=== PATIENT | female | born 1985 | race Caucasian/White ===

== ENCOUNTER 2017-10-25 07:58 | Emergency (ER) | payer OTHER, MEDICAID, SELFPAY ==
[2017-10-25 08:07] VITALS: BP 103/66; PULSE 68; RESP 15; TEMP 37; O2SAT 100; BMI 22.9
--- NOTE | 2017-10-25 08:22 | DI.US.S_ITS ---
PROCEDURE: US OB <= 14 WEEKS FETUS INDICATIONS: vaginal bleeding, pelvic pain, 11 weeks preg. hx ectopic TECHNIQUE: Real-time scanning was performed of the fetus and maternal pelvic organs, with image documentation. Endovaginal scanning was also performed to better visualize the fetus and maternal ovaries. COMPARISON: None. FINDINGS: Embryo: There is irregularly shaped gestational sac within the uterine fundus. A pole is present which measures 1.4 cm in length. There is no cardiac activity. Measurement variability in dating: +/- 4 weeks by LMP, +/- 7 days by mean sac diameter (use before 6 weeks gestation if crown-rump length not able to be measured), +/- 5 days by crown-rump length (up to 8 weeks 6 days gestation), +/- 7 days by crown-rump length (up to 13 weeks 6 days gestation). Maternal organs: Ovaries are not well-visualized. Limited images through the kidneys demonstrate no hydronephrosis. IMPRESSION: 1. Intrauterine demise. Dictated by: Cyndy Gilbert M.D. on 10/25/2017 at 9:26 Approved by: Cyndy Gilbert M.D. on 10/25/2017 at 9:27
--- NOTE | 2017-10-25 09:21 | ED.PREGNANCY ---
HPI - General Chief complaint: OB/Uterine Contractions Stated complaint: 11 wks -bleeding/cramping Time Seen by Provider: 10/25/17 08:10 Source: patient Mode of arrival: ambulatory Limitations: no limitations History of Present Illness HPI Narrative: This is a 32-year-old female who comes in with complaint of pelvic cramping that started yesterday and vaginal bleeding that started this morning. Patient states she noticed some blood when she wiped after urinating and some since then has started to have some clots in additional bleeding. Patient states that she is having some abdominal pain in the lower pelvic region. She felt little dizzy at 1 point but otherwise has not had any other symptoms. No fevers. She was nauseous a little bit yesterday. No vomiting. No chest pain or shortness of breath. No syncope. No GI or urinary symptoms. She did have ultrasound about 5 weeks, she has also had a history of ectopic which was treated with methotrexate and was not treated with surgical intervention. Patient has a metal bonder that she is following with. She denies any other medical issues. She is taking prenatals and no other medications. She denies any tobacco, alcohol or illicit. Patient : Yes Number of Weeks : 11 Related Data : 2 Para: 0 Total number of abortions (spontaneous and elective): 1 Previous Rx's Medication Instructions Recorded hydrocodone-acetaminophen [Dawson] 1 tab PO Q6H PRN #10 tab 10/25/17 ondansetron [Zofran ODT] 4 mg PO Q6-8H PRN #10 tab 10/25/17 Allergies Allergy/AdvReac Type Severity Reaction Status Date / Time Penicillins Allergy Verified 10/25/17 08:07 Review of Systems Review of Systems All systems reviewed & are unremarkable except as noted in HPI and below Constitutional Denies fever(s) Cardiovascular Denies chest pain, Denies syncope, Denies irregular heart rhythm, Denies lightheadedness, Denies palpitations, Denies dyspnea, Denies dyspnea on exertion and Denies orthopnea Respiratory Denies cough, Denies dyspnea, Denies dyspnea on exertion and Denies wheezing Gastrointestinal Gastrointestinal: Reports abdominal pain (Lower pelvic pain), Denies change in bowel habits, Denies diarrhea, Denies nausea and Denies vomiting Genitourinary Reports as per HPI, Reports abnormal vaginal bleeding, Denies urinary frequency, Reports pelvic pain, Denies flank pain and Denies vaginal discharge Neurologic Denies syncope Endocrine Denies palpitations Allergic/Immunologic Denies wheezing PMFSH - Past Medical History Prior ectopic treated with methotrexate Surgical history: Reports no surgical history 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 Patient : Yes Exam Initial Vital Signs Initial Vital Signs: Vital Signs Temperature 98.6 F 10/25/17 08:07 Pulse Rate 68 10/25/17 08:07 Respiratory Rate 15 10/25/17 08:07 Blood Pressure 103/66 10/25/17 08:07 Pulse Oximetry 100 10/25/17 08:07 Const General: cooperative, well developed, in distress and anxious Nutritional Appearance: well nourished Orientation: alert, awake, oriented x3 and not confused Resp Effort & Inspection: normal respiratory effort, able to speak in complete sentences, no respiratory distress and no use of accessory muscles Auscultation: clear to auscultation bilaterally, no rales, no rhonchi and no wheezes Cardio Rate: regular rate Rhythm: regular rhythm Heart Sounds: no click, no gallops, no murmurs and no rubs Pulses: normal peripheral pulses GI Inspection: non-distended Palpation: soft, no hepatosplenomegaly, No guarding, No pulsatile mass and No tender Auscultation: normal bowel sounds General: No CVA tenderness Procedures Number of Weeks : 11 Course Orders Ordered: Discontinued Medications Hydrocodone Bitart/Acetaminophen (Dawson 5/325) 1 tab PO NOW ONE Stop: 10/25/17 09:21 Last Admin: 10/25/17 09:26 Dose: 1 tab Ketorolac Tromethamine (Toradol) 60 mg IM NOW ONE Stop: 10/25/17 10:11 Last Admin: 10/25/17 10:19 Dose: 60 mg Reevaluation(s) Reevaluation #1: patient has been having some increasing pelvic cramping. She is not having a lot of vaginal bleeding at this time. She had Dawson but she may have thrown that up. Discussed and she is amenable to Toradol. We reviewed her ultrasound findings And that she did have demise. Her labs were not drawn after being ordered and so she just had her lab work drawn for Rh as well as CBC and HCG level. Time: 10:11 Consultations Consultation #1: Dr. Evans asks that patient call tomorrow to check in with the office. He does ask that the patient be NPO after midnight so if she does require D and C tomorrow that she will be ready. Rh status is pending. Time: 10:11 Vital Signs - 8 hr 10/25/17 11:23 Temperature 97.9 F Pulse Rate 65 Respiratory Rate 18 Blood Pressure 101/52 L Pulse Oximetry 99 MDM - OB/Uterine Contractions Lab Data Result diagrams: 10/25/17 10:00 10/25/17 10:00 Lab Results 10/25/17 10/25/17 10/25/17 Range/Units 10:00 10:00 10:00 WBC 13.3 H (4.5-11.0) X10^3/uL RBC 4.34 (4.0-5.2) X10^6/uL Hgb 12.9 (12.0-16.0) g/dL Hct 37.6 (36-46) % MCV 86.7 (80-100) fL MCH 29.8 (26-34) PG MCHC 34.4 (30-36) % RDW 13.4 (11.6-14.8) % Plt Count 293 (150-400) X10^3/uL Neut % (Auto) 79.9 H (50-75) % Lymph % (Auto) 14.1 L (25-40) % [place] % (Auto) 4.9 (3-14) % Eos % (Auto) 0.8 L (2-4) % Baso % (Auto) 0.3 (0-2) % Neut # (Auto) 36620 H (7406-4710) /uL Sodium 142 (137-145) mmol/L Potassium 4.2 (3.4-5.1) mmol/L Chloride 108 H (98-107) mmol/L Carbon Dioxide 25 (22-32) mmol/L BUN 7 (7-17) mg/dL Creatinine 0.50 L (0.52-1.04) mg/dL Estimated GFR > 60.0 (>60) mL/min BUN/Creatinine Ratio 14.0 (6-22) Glucose 106 H (70-100) mg/dL Calcium 9.2 (8.4-10.2) mg/dL Total Bilirubin 0.5 (0.2-1.3) mg/dL AST 23 (14-36) IU/L ALT 31 (9-52) IU/L Alkaline Phosphatase 51 (38-126) U/L Total Protein 6.7 (6.3-8.2) g/dL Albumin 4.3 (3.5-5.0) g/dL Globulin 2.4 (1.7-4.1) g/dL Albumin/Globulin Ratio 1.8 (1.0-2.8) HCG, Quant 4163.8 mIU/mL Blood Type O Positive Urine Dip Bedside Urine Glucose Negative Bedside Urine Bilirubin - Negative Bedside Urine Ketone - Negative Urine Specific [place] 1.010 Bedside Urine Occult Blood ++ Bedside Urine pH 6.0 Bedside Urine Protein - Negative Bedside Urine Urobilinogen - Negative Bedside Urine Nitrite - Negative Bedside Urine Leukocytes - Negative Esterase Imaging Data ob US: Radiologist's impression: [address] [address] Ultrasound Report Signed Patient: Karrie Arrieta MR#: [id number] : 1985 Acct:[id number] Age/Sex: 32 / F Date of Service: 10/25/17 Loc: ED Accession Number: [id number] Procedure: US OB <= 14 weeks fetus Ordering Provider: Lona Muniz D.O. PROCEDURE: US OB <= 14 WEEKS FETUS INDICATIONS: vaginal bleeding, pelvic pain, 11 weeks preg. hx ectopic TECHNIQUE: Real-time scanning was performed of the fetus and maternal pelvic organs, with image documentation. Endovaginal scanning was also performed to better visualize the fetus and maternal ovaries. COMPARISON: None. FINDINGS: Embryo: There is irregularly shaped gestational sac within the uterine fundus. A pole is present which measures 1.4 cm in length. There is no cardiac activity. Measurement variability in dating: +/- 4 weeks by LMP, +/- 7 days by mean sac diameter (use before 6 weeks gestation if crown-rump length not able to be measured), +/- 5 days by crown-rump length (up to 8 weeks 6 days gestation), +/- 7 days by crown-rump length (up to 13 weeks 6 days gestation). Maternal organs: Ovaries are not well-visualized. Limited images through the kidneys demonstrate no hydronephrosis. IMPRESSION: 1. Intrauterine demise. Dictated by: Cyndy Gilbert M.D. on 10/25/2017 at 9:26 Approved by: Cyndy Gilbert M.D. on 10/25/2017 at 9:27 [facility] Narrative Medical decision making narrative: CBC, hCG an Rh status were obtained. Patient is Rh positive so no RhoGAM was given. Ultrasound shows intrauterine demise. Patient is having a lot pelvic cramping head will likely have increased bleeding over night. Symptoms were improved somewhat with Toradol. She was given a prescription for pain medication. Spoke with Dr. Evans who is professional programmer analyst for OBGYN to set up follow-up as patient only has a metal bonder currently. Plan is for patient to call tomorrow unless she is having worsening symptoms overnight and then she is to return to the ED. Otherwise she can follow up with OB tomorrow. Discharge Plan Departure Patient Disposition: Home Clinical Impression: Incomplete miscarriage Discharge Date/Time: 10/25/17 11:23 Interventions: ED Discharge Assessment Last Done: 10/25/17 11:23 Instructions: Dealing With Miscarriage, DI for Miscarriage Activity Restrictions/Additional Instructions: Call Dr. Evans is office tomorrow to check in. If needed they will see you tomorrow for follow-up. Call the number in your discharge instructions. Let them know that you were seen in the emergency department. Dr. Evans does ask that you stay NPO or no food/drink after midnight in case you require evaluation and D&C tomorrow. If you are having bleeding greater than 1 pad per hour, lightheadedness, dizziness, shortness of breath or rapidly increasing pain I return to the emergency department for re-evaluation. Take pain medications as needed, you may take 1-2 tablets of Dawson every 4-6 hours as needed for pain. I would also recommend taking ibuprofen up to 800 mg every 8 hr. Prescriptions: New hydrocodone-acetaminophen [Dawson] 5-325 mg tablet 1 tab PO Q6H PRN (Reason: pain) Qty: 10 RF: 0 ondansetron [Zofran ODT] 4 mg tablet,disintegrating 4 mg PO Q6-8H PRN (Reason: nausea and vomiting) Qty: 10 RF: 0 Referrals: Chase Evans MD [Physician] - 10/26/17 12:00 am (Call tomorrow am for follow up.)
--- NOTE | 2017-10-25 09:24 | PC.NURSE ---
S/W pts . Explained follow up and pt will recieve pain meds and can eat.
--- NOTE | 2017-10-25 09:25 | ED_ITS ---
HPI - General Chief complaint: OB/Uterine Contractions Stated complaint: 11 wks -bleeding/cramping Time Seen by Provider: 10/25/17 08:10 Source: patient Mode of arrival: ambulatory Limitations: no limitations History of Present Illness HPI Narrative: This is a 32-year-old female who comes in with complaint of pelvic cramping that started yesterday and vaginal bleeding that started this morning. Patient states she noticed some blood when she wiped after urinating and some since then has started to have some clots in additional bleeding. Patient states that she is having some abdominal pain in the lower pelvic region. She felt little dizzy at 1 point but otherwise has not had any other symptoms. No fevers. She was nauseous a little bit yesterday. No vomiting. No chest pain or shortness of breath. No syncope. No GI or urinary symptoms. She did have ultrasound about 5 weeks, she has also had a history of ectopic which was treated with methotrexate and was not treated with surgical intervention. Patient has a associate director qa that she is following with. She denies any other medical issues. She is taking prenatals and no other medications. She denies any tobacco, alcohol or illicit. Patient : Yes Number of Weeks : 11 Related Data : 2 Para: 0 Total number of abortions (spontaneous and elective): 1 Previous Rx's Medication Instructions Recorded hydrocodone-acetaminophen [Alma] 1 tab PO Q6H PRN #10 tab 10/25/17 ondansetron [Zofran ODT] 4 mg PO Q6-8H PRN #10 tab 10/25/17 Allergies Allergy/AdvReac Type Severity Reaction Status Date / Time Penicillins Allergy Verified 10/25/17 08:07 Review of Systems Review of Systems All systems reviewed & are unremarkable except as noted in HPI and below Constitutional Denies fever(s) Cardiovascular Denies chest pain, Denies syncope, Denies irregular heart rhythm, Denies lightheadedness, Denies palpitations, Denies dyspnea, Denies dyspnea on exertion and Denies orthopnea Respiratory Denies cough, Denies dyspnea, Denies dyspnea on exertion and Denies wheezing Gastrointestinal Gastrointestinal: Reports abdominal pain (Lower pelvic pain), Denies change in bowel habits, Denies diarrhea, Denies nausea and Denies vomiting Genitourinary Reports as per HPI, Reports abnormal vaginal bleeding, Denies urinary frequency , Reports pelvic pain, Denies flank pain and Denies vaginal discharge Neurologic Denies syncope Endocrine Denies palpitations Allergic/Immunologic Denies wheezing PMFSH - Past Medical History Prior ectopic treated with methotrexate 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 Patient : Yes Exam Initial Vital Signs Initial Vital Signs: Vital Signs Temperature 98.6 F 10/25/17 08:07 Pulse Rate 68 10/25/17 08:07 Respiratory Rate 15 10/25/17 08:07 Blood Pressure 103/66 10/25/17 08:07 Pulse Oximetry 100 10/25/17 08:07 Const General: cooperative, well developed, in distress and anxious Nutritional Appearance: well nourished Orientation: alert, awake, oriented x3 and not confused Resp Effort & Inspection: normal respiratory effort, able to speak in complete sentences, no respiratory distress and no use of accessory muscles Auscultation: clear to auscultation bilaterally, no rales, no rhonchi and no wheezes Cardio Rate: regular rate Rhythm: regular rhythm Heart Sounds: no click, no gallops, no murmurs and no rubs Pulses: normal peripheral pulses GI Inspection: non-distended Palpation: soft, no hepatosplenomegaly, No guarding, No pulsatile mass and No tender Auscultation: normal bowel sounds General: No CVA tenderness Procedures Number of Weeks : 11 Course Orders Ordered: Discontinued Medications Hydrocodone Bitart/Acetaminophen (Alma 5/325) 1 tab PO NOW ONE Stop: 10/25/17 09:21 Last Admin: 10/25/17 09:26 Dose: 1 tab Ketorolac Tromethamine (Toradol) 60 mg IM NOW ONE Stop: 10/25/17 10:11 Last Admin: 10/25/17 10:19 Dose: 60 mg Reevaluation(s) Reevaluation #1: patient has been having some increasing pelvic cramping. She is not having a lot of vaginal bleeding at this time. She had Alma but she may have thrown that up. Discussed and she is amenable to Toradol. We reviewed her ultrasound findings And that she did have demise. Her labs were not drawn after being ordered and so she just had her lab work drawn for Rh as well as CBC and HCG level. Time: 10:11 Consultations Consultation #1: Dr. Evans asks that patient call tomorrow to check in with the office. He does ask that the patient be NPO after midnight so if she does require D and C tomorrow that she will be ready. Rh status is pending. Time: 10:11 Vital Signs - 8 hr 10/25/17 11:23 Temperature 97.9 F Pulse Rate 65 Respiratory Rate 18 Blood Pressure 101/52 L Pulse Oximetry 99 MDM - OB/Uterine Contractions Lab Data Result diagrams: 10/25/17 10:00 10/25/17 10:00 Lab Results 10/25/17 10/25/17 10/25/17 Range/Units 10:00 10:00 10:00 WBC 13.3 H (4.5-11.0) X10^3/uL RBC 4.34 (4.0-5.2) X10^6/uL Hgb 12.9 (12.0-16.0) g/dL Hct 37.6 (36-46) % MCV 86.7 (80-100) fL MCH 29.8 (26-34) PG MCHC 34.4 (30-36) % RDW 13.4 (11.6-14.8) % Plt Count 293 (150-400) X10^3/uL Neut % (Auto) 79.9 H (50-75) % Lymph % (Auto) 14.1 L (25-40) % [place] % (Auto) 4.9 (3-14) % Eos % (Auto) 0.8 L (2-4) % Baso % (Auto) 0.3 (0-2) % Neut # (Auto) 12307 H (3260-2441) /uL Sodium 142 (137-145) mmol/L Potassium 4.2 (3.4-5.1) mmol/L Chloride 108 H (98-107) mmol/L Carbon Dioxide 25 (22-32) mmol/L BUN 7 (7-17) mg/dL Creatinine 0.50 L (0.52-1.04) mg/dL Estimated GFR > 60.0 (>60) mL/min BUN/Creatinine Ratio 14.0 (6-22) Glucose 106 H (70-100) mg/dL Calcium 9.2 (8.4-10.2) mg/dL Total Bilirubin 0.5 (0.2-1.3) mg/dL AST 23 (14-36) IU/L ALT 31 (9-52) IU/L Alkaline Phosphatase 51 (38-126) U/L Total Protein 6.7 (6.3-8.2) g/dL Albumin 4.3 (3.5-5.0) g/dL Globulin 2.4 (1.7-4.1) g/dL Albumin/Globulin Ratio 1.8 (1.0-2.8) HCG, Quant 4163.8 mIU/mL Blood Type O Positive Urine Dip Bedside Urine Glucose Negative Bedside Urine Bilirubin - Negative Bedside Urine Ketone - Negative Urine Specific [place] 1.010 Bedside Urine Occult Blood ++ Bedside Urine pH 6.0 Bedside Urine Protein - Negative Bedside Urine Urobilinogen - Negative Bedside Urine Nitrite - Negative Bedside Urine Leukocytes - Negative Esterase Imaging Data ob US: Radiologist's impression: [address] [address] Ultrasound Report Signed Patient: Karrie Arrieta MR#: [id number] : 1985 Acct:[id number] Age/Sex: 32 / F Date of Service: 10/25/17 Loc: ED Accession Number: [id number] Procedure: US OB <= 14 weeks fetus Ordering Provider: Lona Muniz D.O. PROCEDURE: US OB <= 14 WEEKS FETUS INDICATIONS: vaginal bleeding, pelvic pain, 11 weeks preg. hx ectopic TECHNIQUE: Real-time scanning was performed of the fetus and maternal pelvic organs, with image documentation. Endovaginal scanning was also performed to better visualize the fetus and maternal ovaries. COMPARISON: None. FINDINGS: Embryo: There is irregularly shaped gestational sac within the uterine fundus. A pole is present which measures 1.4 cm in length. There is no cardiac activity. Measurement variability in dating: +/- 4 weeks by LMP, +/- 7 days by mean sac diameter (use before 6 weeks gestation if crown-rump length not able to be measured), +/ - 5 days by crown-rump length (up to 8 weeks 6 days gestation), +/- 7 days by crown-rump length (up to 13 weeks 6 days gestation). Maternal organs: Ovaries are not well-visualized. Limited images through the kidneys demonstrate no hydronephrosis. IMPRESSION: 1. Intrauterine demise. Dictated by: Cyndy Gilbert M.D. on 10/25/2017 at 9:26 Approved by: Cyndy Gilbert M.D. on 10/25/2017 at 9:27 [facility] Narrative Medical decision making narrative: CBC, hCG an Rh status were obtained. Patient is Rh positive so no RhoGAM was given. Ultrasound shows intrauterine demise. Patient is having a lot pelvic cramping head will likely have increased bleeding over night. Symptoms were improved somewhat with Toradol. She was given a prescription for pain medication. Spoke with Dr. Evans who is personal care worker for OBGYN to set up follow-up as patient only has a associate director qa currently. Plan is for patient to call tomorrow unless she is having worsening symptoms overnight and then she is to return to the ED. Otherwise she can follow up with OB tomorrow. Discharge Plan Departure Patient Disposition: Home Clinical Impression: Incomplete miscarriage Discharge Date/Time: 10/25/17 11:23 Interventions: ED Discharge Assessment Last Done: 10/25/17 11:23 Instructions: Dealing With Miscarriage, DI for Miscarriage Activity Restrictions/Additional Instructions: Call Dr. Evans is office tomorrow to check in. If needed they will see you tomorrow for follow-up. Call the number in your discharge instructions. Let them know that you were seen in the emergency department. Dr. Evans does ask that you stay NPO or no food/drink after midnight in case you require evaluation and D&C tomorrow. If you are having bleeding greater than 1 pad per hour, lightheadedness, dizziness, shortness of breath or rapidly increasing pain I return to the emergency department for re-evaluation. Take pain medications as needed, you may take 1-2 tablets of Alma every 4-6 hours as needed for pain. I would also recommend taking ibuprofen up to 800 mg every 8 hr. Prescriptions: New hydrocodone-acetaminophen [Alma] 5-325 mg tablet 1 tab PO Q6H PRN (Reason: pain) Qty: 10 RF: 0 ondansetron [Zofran ODT] 4 mg tablet,disintegrating 4 mg PO Q6-8H PRN (Reason: nausea and vomiting) Qty: 10 RF: 0 Referrals: Chase Evans MD [Physician] - 10/26/17 12:00 am (Call tomorrow am for follow up.)
[2017-10-25] MEDS: HYDROCODONE/ACET 5/325 TABLET 1 TAB PO (09:26)
[2017-10-25 10:11] LABS: Add Manual Diff / Slide Review NO; Basophils Percent Auto 0.3 % (0-2); Eosinophils Percent Auto 0.8 % (2-4); Hematocrit 37.6 % (36-46); Hemoglobin 12.9 g/dL (12.0-16.0); Lymphocytes Percent Auto 14.1 % (25-40); Mean Corpuscular HGB Conc 34.4 % (30-36); Mean Corpuscular Hemoglobin 29.8 PG (26-34); Mean Corpuscular Volume 86.7 fL (80-100); Monocytes Percent Auto 4.9 % (3-14); Neutrophils Absolute Auto 10600 /uL (3000-5900); Neutrophils Percent Auto 79.9 % (50-75); Platelet Count 293 X10^3/uL (150-400); Red Blood Cell Count 4.34 X10^6/uL (4.0-5.2); Red Cell Distribution Width 13.4 % (11.6-14.8); White Blood Cell Count 13.3 X10^3/uL (4.5-11.0)
[2017-10-25] MEDS: KETOROLAC 60 MG/2 ML VIAL IM (10:19)
[2017-10-25 10:22] LABS: Alanine Aminotransferase 31 IU/L (9-52); Albumin 4.3 g/dL (3.5-5.0); Albumin Globulin Ratio 1.8 (1.0-2.8); Alkaline Phosphatase 51 U/L (38-126); Aspartate Aminotransferase 23 IU/L (14-36); Bilirubin Total 0.5 mg/dL (0.2-1.3); Blood Urea Nitrogen 7 mg/dL (7-17); Calcium 9.2 mg/dL (8.4-10.2); Carbon Dioxide 25 mmol/L (22-32); Chloride 108 mmol/L (98-107); Estimated Glomerular Filt Rate > 60.0 mL/min (>60); Globulin 2.4 g/dL (1.7-4.1); Glucose 106 mg/dL (70-100); HEMOLYSIS < 15 (0-50); Potassium 4.2 mmol/L (3.4-5.1); Sodium 142 mmol/L (137-145); Total Protein 6.7 g/dL (6.3-8.2)
[2017-10-25 10:38] LABS: HCG Quantitative /Beta subunit 4163.8 mIU/mL
[2017-10-25 11:23] VITALS: BP 101/52; PULSE 65; RESP 18; TEMP 36.6; O2SAT 99
== END 2017-10-25 11:23 | disposition home or self-care (01) ==
PROVIDERS: Emergency Provider Emergency Medicine
DX: O03.4 Incomplete spontaneous abortion without complication (principal); Z3A.11 11 weeks gestation of pregnancy
CPT/HCPCS: 36415; 76801; 76817; 80053; 81003; 84702; 85025; 86900; 86901; 96372; 99282; 99284; J1885

== ENCOUNTER → 2018-09-08 15:14 | Outpatient (CLI) | payer OTHER, MEDICAID, SELFPAY ==
[2018-09-08 16:09] LABS: Add Manual Diff / Slide Review NO; Basophils Absolute Auto 0 /uL (0-100); Basophils Percent Auto 0.3 % (0-2); Eosinophils Absolute Auto 100 /uL (0-450); Eosinophils Percent Auto 1.3 % (2-4); Hematocrit 35.9 % (36-46); Hemoglobin 12.1 g/dL (12.0-16.0); Lymphocytes Absolute Auto 1800 /uL (1100-4500); Lymphocytes Percent Auto 16.7 % (25-40); Mean Corpuscular HGB Conc 33.7 % (30-36); Mean Corpuscular Volume 88.9 fL (80-100); Monocytes Absolute Auto 500 /uL (0-900); Monocytes Percent Auto 4.5 % (3-14); Neutrophils Absolute Auto 8200 /uL (1500-7000); Neutrophils Percent Auto 77.2 % (50-75); Platelet Count 265 X10^3/uL (150-400); Red Blood Cell Count 4.04 X10^6/uL (4.0-5.2); Red Cell Distribution Width 13.5 % (11.6-14.8); White Blood Cell Count 10.6 X10^3/uL (4.5-11.0)
[2018-09-08 16:15] LABS: Appearance Urine UA CLEAR; Bilirubin Urine UA NEGATIVE (NEGATIVE); Color Urine UA YELLOW; Glucose Urine UA NEGATIVE (Negative); Ketones Urine UA NEGATIVE (NEGATIVE); Leukocyte Esterase Urine UA NEGATIVE (NEGATIVE); Nitrite Urine UA NEGATIVE (Negative); Occult Blood Urine UA NEGATIVE (Negative); Protein Urine UA NEGATIVE (Negative); Specific Gravity Urine UA 1.025 (1.000-1.035); Urobilinogen Urine UA 0.2 E.U./dL (0.2); pH Urine UA 6.5 (4.5-8.0)
[2018-09-08 17:32] LABS: Hepatitis B Surface Antigen NEGATIVE s/c (NEGATIVE)
[2018-09-08 17:36] LABS: Specimen Label NATERA
[2018-09-08 17:38] LABS: HIV 1 & 2 Ab/Ag 4th Gen Combo NEGATIVE (NEGATIVE); Hep C Virus Ab w/Reflex Quant NEGATIVE s/c (NEGATIVE)
[2018-09-10 14:31] LABS: RPR Screen Nonreactive (Nonreactive)
== END ==
PROVIDERS: Visit Provider Specialist
DX: Z34.91 Encounter for supervision of normal pregnancy, unspecified, first trimester (principal); Z13.79 Encounter for other screening for genetic and chromosomal anomalies
CPT/HCPCS: 36415; 80055; 81003; 86787; 86803; 86850; 86900; 86901; 87086; 87389; 87491; 87591

== ENCOUNTER → 2018-09-08 17:28 | Outpatient (CLI) | payer OTHER, MEDICAID, SELFPAY ==
[2018-09-08 22:15] LABS: Urine N gonorrhoeae NOT DETECTED
[2018-09-08 22:25] LABS: Urine Chlamydia NOT DETECTED
== END ==
PROVIDERS: Visit Provider Specialist
DX: Z34.81 Encounter for supervision of other normal pregnancy, first trimester (principal); Z13.79 Encounter for other screening for genetic and chromosomal anomalies
CPT/HCPCS: 87491; 87591

== ENCOUNTER → 2018-11-10 09:52 | Outpatient (CLI) | payer OTHER, MEDICAID, SELFPAY ==
--- NOTE | 2018-11-10 09:53 | DI.US.S_ITS ---
PROCEDURE: US OB >= 14 WEEKS FETUS INDICATIONS: 20 WK ANATOMIC SURVEY OUTSIDE/PRIOR DATING DATA: Last menstrual period (LMP): 06/18/18. LMP-based estimated date of delivery (POOJA): 03/25/18. First dating scan (date and location): 11/10/18 Estimated date of delivery (POOJA) from first dating scan: 03/26/18. TECHNIQUE: Real-time scanning was performed of the fetus, with image documentation and biometric measurements. Endovaginal scanning: No COMPARISON: ultrasound 10/25/2017. FINDINGS: General: A single living intrauterine gestation is present. Presentation: Breech Placenta: Placental position is fundal, without previa. Amniotic fluid index: 19.7 cm, normal range is 5-24 cm. heart rate: 150 beats per minute. Irregular heart beats are noted. Maternal cervical canal: 4.4 cm long. Normal lower limit is 2.5 cm. biometrics: Biparietal diameter: 20 weeks 3 days Head circumference: 20 weeks 1 day Abdominal circumference: 20 weeks 1 day Femur length: 20 weeks 3 days Estimated gestational age from initial scan: 20 weeks 5 days Composite gestational age from present scan: 20 weeks 4 days Estimated weight and percentile: 375 g; 47 percentile Measurement variability for biometric dating: +/- 7 days from 14 weeks to 15 weeks 6 days gestation, +/- 10 days from 16 weeks to 21 weeks 6 days gestation, +/- 2 weeks from 22 weeks to 27 weeks 6 days gestation, +/- 3 weeks for 28 weeks gestation or later. weight reference: 4500 g or EFW >90/95% is considered macrosomia or large for gestational age. EFW <10% is small for gestational age. EFW 5% or less is considered intra-uterine growth restriction. Anatomic survey: Neuro: Ventricles are non-dilated at less than 10 mm. Cisterna magna is normal at 3-11 mm. Cerebellum is normal in size and morphology. Nuchal skin fold: Normal at less than 6 mm between 14-21 weeks gestational age. Face: Nose and lips, facial profile are normal. Spine: No evidence for spina bifida. Heart: 4-chambered heart is present, with normal ventricular outflow tracts. Diaphragm: Diaphragm is intact. Stomach: Left-sided stomach is present. Kidneys: No hydronephrosis. Normal is less than 5 mm in 2nd trimester, less than 7 mm in 3rd trimester. Cord: 3-vessel cord has orthotopic insertion. Bladder: Normal in size. Extremities: All 4 extremities identified. IMPRESSION: 1. Single living IUP with mean composite gestational age of 20 weeks 4 days corresponding to ultrasound POOJA of 03/26/18. 2. Normal placenta and amniotic fluid. 3. Irregular heart beats concerning for arrhythmia. Recommend short-term followup ultrasound. 4. Normal anatomic survey. Dictated by: Joel AVERY Interpreted: Graeme Fishre MD on 11/10/2018 at 12:56 Approved by: Graeme Fisher M.D. on 11/10/2018 at 13:39
== END ==
PROVIDERS: Visit Provider Specialist
DX: Z34.82 Encounter for supervision of other normal pregnancy, second trimester (principal); Z3A.20 20 weeks gestation of pregnancy
CPT/HCPCS: 76811

== ENCOUNTER → 2019-03-11 14:40 | Outpatient (CLI) | payer MEDICAID, OTHER, SELFPAY ==
--- NOTE | 2019-03-11 | DI.US.S_ITS ---
PROCEDURE: US OB BIOPHYSICAL PROFILE INDICATIONS: BPP AND SAVANA OUTSIDE/PRIOR DATING DATA: Last menstrual period (LMP): 06/18/18. LMP-based estimated date of delivery (POOJA): 03/25/18. First dating scan (date and location): 11/10/18 Estimated date of delivery (POOJA) from first dating scan: 03/26/19. TECHNIQUE: Real-time scanning was performed of the fetus for biophysical profile, with image documentation. Color and pulse Doppler interrogation was also performed of the umbilical artery near its insertion into the placenta. Endovaginal scanning: Deferred COMPARISON: None. FINDINGS: General: A single living intrauterine gestation is present. Presentation: Vertex. Placenta: Placental position is fundal, without previa. Amniotic fluid index: 17.9 cm, normal range is 5-24 cm. heart rate: 135 beats per minute. Regular Estimated gestational age from initial scan: 37 weeks, 6 days. Biophysical profile: Tone: 2 points. Movement: 2 points. Respiration: 2 points. Largest pocket of fluid: 2 points. IMPRESSION: 1. Single living intrauterine in vertex presentation. 2. Normal biophysical profile score of 8 out of 8. 3. Amniotic fluid index of 17.9 cm, within normal limits Dictated by: Monique Ramirez M.D. on 03/11/2019 at 18:10 Approved by: Monique Ramirez M.D. on 03/11/2019 at 18:13
== END ==
PROVIDERS: Visit Provider Midwife
DX: Z36.0 Encounter for antenatal screening for chromosomal anomalies (principal); Z3A.37 37 weeks gestation of pregnancy
CPT/HCPCS: 76819